=== PATIENT | male | born 1995 | race Caucasian/White ===

== ENCOUNTER 2021-05-15 04:37 | Emergency (ER) | payer OTHER ==
[~2021-05-15] VITALS: Ht 172.7 cm; Wt 90.7 kg
--- NOTE | 2021-05-15 04:37 | NUR ---
ANAT BURNS, PREBOOK. TAKEN TO CHAIR C
[2021-05-15 04:46] VITALS: BP 117/76
--- NOTE | 2021-05-15 04:53 | NUR ---
Dr. Perry examining patient.
--- NOTE | 2021-05-15 05:13 | NUR ---
PATIENT BIB [employer]. PATIENT EXAMINED BY DR. GROSSMAN. PATIENT MEDICALLY CLEARED AND RELEASED IN CUSTODY IN STABLE CONDITION. ORIGINAL PRE-BOOK FORM GIVEN TO OFFICER MIGUEL.
== END 2021-05-15 05:13 ==
LOC: MED 04:37
DX: F10.129 Alcohol abuse with intoxication, unspecified (principal); Z02.83 Encounter for blood-alcohol and blood-drug test; Z02.89 Encounter for other administrative examinations; V43.52XA Car driver injured in collision with other type car in traffic accident, initial encounter; Y93.89 Activity, other specified; Y92.89 Other specified places as the place of occurrence of the external cause; Y99.8 Other external cause status
CPT/HCPCS: 99283